=== PATIENT | male | born 1955 | race Caucasian/White ===

== ENCOUNTER → 2020-05-21 | Outpatient (CLI) | payer OTHER | END | disposition home or self-care (01) | LOC: RAH 10:04 | PROVIDERS: ATTEND Family Medicine | DX: E04.1 Nontoxic single thyroid nodule (principal) | CPT/HCPCS: 76536 ==

== ENCOUNTER → 2020-05-23 | Outpatient (CLI) | payer OTHER | END | disposition home or self-care (01) | LOC: RAH 10:16 | PROVIDERS: ATTEND Family Medicine | DX: R94.6 Abnormal results of thyroid function studies (principal) | CPT/HCPCS: 78014; A9516 ==

== ENCOUNTER → 2022-08-31 | Outpatient (CLI) | payer MEDICARE, OTHER | END | disposition home or self-care (01) | LOC: RAH 14:25 | PROVIDERS: ATTEND Family Medicine | DX: J44.9 Chronic obstructive pulmonary disease, unspecified (principal); K44.9 Diaphragmatic hernia without obstruction or gangrene; M47.815 Spondylosis without myelopathy or radiculopathy, thoracolumbar region; Z87.891 Personal history of nicotine dependence | CPT/HCPCS: 71250 ==

== ENCOUNTER → 2022-09-03 | Outpatient (CLI) | payer MEDICARE, OTHER | END | disposition home or self-care (01) | LOC: RAH 09:02 | PROVIDERS: ATTEND Family Medicine | DX: Z13.6 Encounter for screening for cardiovascular disorders (principal); Z87.891 Personal history of nicotine dependence | CPT/HCPCS: 76775 ==

== ENCOUNTER 2023-11-03 17:00 | Emergency (ER) | payer MEDICARE, OTHER ==
[~2023-11-03] VITALS: Ht 177.8 cm; Wt 70.3 kg
[2023-11-03 17:34] LABS: HEMATOCRIT 43.5 % (42-54); MEAN CORPUSCULAR HEMOGLOBIN 31.4 pg (27.0-33.0); MEAN CORPUSCULAR HGB CONC 36.6 g/dL (32.0-36.0); MEAN CORPUSCULAR VOLUME 85.8 fL (79-99); PLATELET COUNT (AUTO) 258 K/uL (130-400); RED BLOOD CELL COUNT(AUTO) 5.07 MIL/uL (4.50-6.20); RED CELL DISTRIBUTION WIDTH 12.2 % (11.0-15.5); WHITE BLOOD COUNT (AUTO) 9.7 K/uL (4.8-10.8)
[2023-11-03 17:39] LABS: CREATININE 0.8 mg/dL (0.5-1.3); POTASSIUM 3.8 mmol/L (3.5-5.1)
[2023-11-03] MEDS ORDERED: ONDANSETRON ODT 4MG TAB SL ONE (19:00)
[2023-11-03 19:13] LABS: APPEARANCE,URINE CLOUDY (CLEAR); BILIRUBIN,URINE NEGATIVE (NEGATIVE); COLOR,URINE LIGHT-YELLOW (YELLOW); GLUCOSE, URINE (UA) NEGATIVE (NEGATIVE); KETONES,URINE NEGATIVE (NEGATIVE); LEUKOCYTE ESTERASE ,URINE NEGATIVE Leu/uL (NEGATIVE); NITRATE,URINE NEGATIVE (NEGATIVE); OCCULT BLOOD,URINE NEGATIVE (NEGATIVE); PROTEIN,URINE NEGATIVE (NEGATIVE); UROBILINOGEN,URINE 0.2 mg/dL (0.2-1.0)
[2023-11-03 19:16] LABS: ADD UA MICROSCOPIC YES
[2023-11-03 19:17] LABS: BACTERIA,URINE RARE /HPF (None Seen); MUCUS,URINE RARE LPF (None Seen); SQUAMOUS EPITHELIAL CELL,UR RARE /HPF (0-2); UNCLASSIFIED CRYSTAL 3 /HPF (None Seen); YEAST,URINE BUDDING FEW /HPF (None Seen)
[2023-11-03 19:51] VITALS: BP 135/78; PULSE 68; RESP 18; O2SAT 98
[2023-11-03] MEDS: ONDANSETRON 4MG INJ IVP ONE (20:09)
[2023-11-03] MEDS ORDERED: MECL-302 PO (20:24)
[2023-11-03] MEDS: MECLIZINE HCL 25 MG TABLET PO SCH (21:13)
== END 2023-11-03 21:16 ==
LOC: EDH 17:00
DX: R42 Dizziness and giddiness (principal)
CPT/HCPCS: 99284; 83735; 84484; 80048; 85027; 81001; 36415; 70450; 93005; J2405

== ENCOUNTER 2024-07-22 17:42 | Emergency (ER) | payer MEDICARE ==
[~2024-07-22] VITALS: Ht 177.8 cm; Wt 69.9 kg
[~2024-07-22 17:42] MED LIST: MECL-302 PO
--- NOTE | 2024-07-22 17:57 | EKG ---
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 [place] : 1955 Requested By: ROBYN MÁRQUEZ Order Number: [id number] Reading MD: Hang Velazquez Measurements Intervals [place] Rate: 78 P: 82 AL: 161 QRS: 59 QRSD: 82 T: 72 QT: 371 QTc: 423 Interpretive Statements Sinus rhythm Consider left ventricular hypertrophy Anterior Q waves, possibly due to LVH Compared to ECG 11/03/2023 17:13:26 Left ventricular hypertrophy now present Q waves now present Electronically Signed On 07-23-2024 14:56:40 CDT by Hang Velazquez Please click the below link to view image of tracing.
--- NOTE | 2024-07-22 18:12 | ERN ---
General Chief Complaint: Cough Stated Complaint: PERSISTENT COUGH, BACK PAIN Time Seen by MD: 17:44 Source: patient History of Present Illness Initial Comments PATIENT IS A 68-YEAR-OLD MALE COMING IN TO BE EVALUATED FOR COUGH. PER PATIENT HE WAS SEEN AT ANOTHER FACILITY AND WAS PRESCRIBED STEROIDS AND MEDICATION FOR HIS COUGH BUT STATES THAT HIS COUGH IS STILL ONGOING. Allergies: Coded Allergies: No Known Drug Allergies (Unverified Allergy, Unknown, 11/03/23) Home Meds Active Scripts Meclizine HCl (Meclizine HCl) 25 Mg Tablet, 25 MG PO q8 hours PRN for dizziness, #15 TAB 0 Refills Prov:VENANCIO MACKAY [employer] 11/03/23 Past Medical History Past Medical History: Other Medical History Other: ADHD Past Surgical History: Other ROS Dictation CONSTITUTIONAL: NO CHILLS, NO FEVER, NO WEAKNESS, NO DIAPHORESIS, NO MALAISE. HEAD/FACE: NO SIGNS OF TRAUMA. EENT: NO EYE PAIN, NO BLURRED VISION, NO TEARING, NO DOUBLE VISION, NO EAR PAIN, NO EAR DISCHARGE, NO NOSE PAIN, NO NASAL CONGESTION, NO THROAT PAIN, NO THROAT SWELLING, NO MOUTH PAIN. RESPIRATORY: NO COUGH, NO ORTHOPNEA, NO SOB, NO STRIDOR, NO WHEEZING. CARDIOVASCULAR: NO CHEST PAIN, NO EDEMA, NO PALPITATIONS, NO SYNCOPE. GASTROINTESTINAL/ABDOMINAL: NO ABDOMINAL PAIN, NO CONSTIPATION, NO DIARRHEA, NO NAUSEA, NO VOMITING. GENITOURINARY: NO ABNORMAL DISCHARGE, NO DYSURIA, NO FREQUENT URINATION, NO H EMATURIA. NO COMPLAINTS OF PAIN IN THE GENITALS. MUSCULOSKELETAL: NO BACK PAIN, NO GOUT, NO JOINT PAIN, NO JOINT SWELLING, NO MUSCLE PAIN, NO MUSCLE STIFFNESS, NO NECK PAIN. INTEGUMENTARY: NO CHANGE IN COLOR, NO CHANGE IN HAIR/NAILS, NO DRYNESS, NO LES ION, NO LUMPS, NO RASH. NEUROLOGICAL/PSYCH: NO ANXIETY, NOT DEPRESSED, NO EMOTIONAL PROBLEM, NO HEADACHE, NO NUMBNESS, NO PRE-EXISTING DEFICIT, NO HISTORY OF SEIZURES, NO TREMORS, NO WEAKNESS. HEMATOLOGIC/LYMPHATIC: NOT ANEMIC, NO HISTORY OF BLOOD CLOTS, NO APPARENT BLEEDING, NO BRUISING, GLANDS NOT SWOLLEN. ALL SYSTEMS NEGATIVE, EXCEPT NOTED. Physical Exam Physical Exam Dictation VITAL SIGNS: REVIEWED. GENERAL APPEARANCE: ALERT, ORIENTED X3, NO ACUTE DISTRESS, OBESE. HEAD AND FACE: NON-TRAUMATIC. EYES: PERRL, PINK CONJUNCTIVAS, EYELID NO TRAUMA, ANTERIOR CHAMBER CLEAR. EARS: PINNAS INTACT AND NO SIGNS OF TRAUMA OR ERYTHEMA. EAR CANALS CLEAR AND NO DISCHARGE. TMS NO ERYTHEMA. NOSE: NO DISCHARGE, NO BLEEDING. OROPHARYNX: MOUTH NORMAL, TEETH NO CARIES, TONGUE PINK. PHARYNX CLEAR, NO ERYTHEMA. TONSILS NO EXUDATES, NO ABSCESSES NOTED. MUCOUS MEMBRANE MOIST. NECK: SUPPLE, NON-TENDER, NO THYROMEGALY, NO MASSES, NO JVD, NO BRUITS. BREAST: DEFERRED. CHEST: NO TENDERNESS, NO CREPITUS, NO PARADOXICAL MOVEMENT, NO RETRACTIONS. LUNGS: CLEAR, WELL-VENTILATED, SYMMETRIC, NO RALES, NO WHEEZING, NO RHONCHI, NO STRIDOR, GOOD BREATH SOUNDS BILATERALLY. HEART: REGULAR RATE, REGULAR RHYTHM, NO MURMUR, NO GALLOPS. VASCULAR: NO PERIPHERAL EDEMA. ABDOMEN: SOFT, POSITIVE BOWEL SOUNDS, NONDISTENDED, NO GUARDING, NONTENDER, NO REBOUND, NO MASSES NO HEPATOMEGALY, NO SPLENOMEGALY, NO SANDERSON'S SIGN, NO HERNIAS. RECTAL: DEFERRED. GENITAL: DEFERRED. NEUROLOGICAL: NORMAL SPEECH, GROSS MOTOR FUNCTION INTACT, GROSS SENSORY FUNCTION INTACT. MUSCULOSKELETAL: NECK NONTENDER, FULL RANGE OF MOTION, BACK NONTENDER, FULL RANGE OF MOTION. EXTREMITIES: NONTENDER, FULL RANGE OF MOTION. SKIN: COLOR PINK, DRY, NO TURGOR, NO RASH, NO LACERATIONS, NO ABRASIONS, NO CONTUSIONS. LYMPHATICS: DEFERRED. Results Laboratory and Microbiology Lab and Micro Result Laboratory Tests Test 07/22/24 19:41 07/22/24 20:30 07/22/24 21:40 White Blood Count 15.0 K/uL (4.8-10.8) H Red Blood Count 4.90 MIL/uL (4.50-6.20) Hemoglobin 15.0 g/dL (14.0-18.0) Hematocrit 42.0 % (42-54) Mean Corpuscular Volume 85.7 fL (79-99) Mean Corpuscular Hemoglobin 30.6 pg (27.0-33.0) Mean Corpuscular Hemoglobin Concent 35.7 g/dL (32.0-36.0) Red Cell Distribution Width 12.5 % (11.0-15.5) Platelet Count 342 K/uL (130-400) Mean Platelet Volume 8.4 fL (7.5-10.5) Immature Granulocyte % (Auto) 1.3 % (0-1) H Neutrophils (%) (Auto) 67.9 % (40.0-77.0) Lymphocytes (%) (Auto) 21.6 % (21.0-51.0) Monocytes (%) (Auto) 6.9 % (3.0-13.0) Eosinophils (%) (Auto) 1.9 % (0.0-8.0) Basophils (%) (Auto) 0.4 % (0.0-5.0) Neutrophils # (Auto) 10.2 K/uL (1.8-7.7) H Lymphocytes # (Auto) 3.2 K/uL (1.0-4.8) Monocytes # (Auto) 1.0 K/uL (0.1-1.0) Eosinophils # (Auto) 0.28 K/uL (0.00-0.70) Basophils # (Auto) 0.06 K/uL (0.00-0.20) Absolute Immature Granulocyte (auto 0.20 K/uL (0-1) Nucleated Red Blood Cells 0.0 % (0.0-0.19) Prothrombin Time 10.8 SEC (9.6-11.6) Prothromb Time International Ratio 1.02 (0.85-1.15) Sodium Level 139 mmol/L (136-145) Potassium Level 4.1 mmol/L (3.5-5.1) Chloride Level 102 mmol/L (101-111) Carbon Dioxide Level 30 mmol/L (21-32) Blood Urea Nitrogen 18 mg/dL (7-18) Creatinine 0.8 mg/dL (0.5-1.3) Glomerular Filtration Rate Calc 97 mL/min (>90) Random Glucose 101 mg/dL (70-105) Total Calcium 8.8 mg/dL (8.5-10.1) Total Creatine Kinase 104 U/L (21-232) Troponin I High Sensitivity 11.0 ng/L (4-75) B-Type Natriuretic Peptide 41 pg/mL (0-100) Procalcitonin < 0.05 ng/mL (0.05-0.5) L Influenza Type A Antigen Negative For Type A Influenza Type B Antigen Negative For Type B SARS-CoV-2 Antigen (Rapid) PRESUMPTIVE NEGATIVE Group A Streptococcus Rapid negative (NEGATIVE) Urine Color LIGHT-YELLOW (YELLOW) Urine Appearance CLEAR (CLEAR) Urine pH 7.0 (5.0-8.0) Urine Specific [place] 1.013 (1.001-1.031) Urine Protein NEGATIVE mg/dL (NEGATIVE) Urine Glucose (UA) NEGATIVE mg/dL (NEGATIVE) Urine Ketones NEGATIVE mg/dL (NEGATIVE) Urine Occult Blood NEGATIVE (NEGATIVE) Urine Nitrate NEGATIVE (NEGATIVE) Urine Bilirubin NEGATIVE mg/dL (NEGATIVE) Urine Urobilinogen 0.2 mg/dL (0.2-1.0) Urine Leukocyte Esterase NEGATIVE Pretty/uL Urine Opiates Screen NEGATIVE (NEGATIVE) Urine Barbiturates Screen NEGATIVE (NEGATIVE) Urine Phencyclidine Screen NEGATIVE (NEGATIVE) Urine Amphetamines Screen NEGATIVE (NEGATIVE) Urine Benzodiazepines Screen NEGATIVE (NEGATIVE) Urine Cocaine Screen NEGATIVE (NEGATIVE) Urine Marijuana (THC) Screen NEGATIVE (NEGATIVE) Labs Reviewed?: Yes MDM MDM: DIFFERENTIAL DIAGNOSIS: PERSISTENT COUGH, URI, SHORTNESS OF BREATH PATIENT IS A 68-YEAR-OLD GENTLEMAN COMING IN TO BE EVALUATED FOR PERSISTENT COUGH. ON PHYSICAL EXAM NO ACUTE FINDINGS. LABORATORY WORKUP PENDING TO RULE OUT ACUTE PATHOLOGY. Patient's lab studies were all negative except for a white count of 15. Procalcitonin was negative. Patient has a viral upper respiratory tract infection. He is being overwhelmed by the symptoms. I will discharge him with some Tessalon Perles as well as some muscle relaxant for his back. ED Course Orders Procedure Category Date Status Time Cbc With Differential LAB 07/22/24 Complete 17:49 Prothrombin Time With LAB 07/22/24 Complete INR 17:49 B-Type Natriuretic LAB 07/22/24 Complete Peptide 17:49 Chest 1vw RAD 07/22/24 Resulted 17:49 12 Lead Ekg Tracing- EKG 07/22/24 Complete Technical 17:49 Urinalysis Profile LAB 07/22/24 Complete 17:49 Basic Metabolic Panel LAB 07/22/24 Complete 17:49 Drug Screen Urine LAB 07/22/24 Complete 17:58 Acetaminophen 500mg PHA 07/22/24 Complete Tab (Tylenol 500mg T 18:00 Cardiac Panel LAB 07/22/24 Complete 17:49 Rapid (Group A Strep) LAB 07/22/24 Complete 19:22 Covid19 (Sars Antigen LAB 07/22/24 Complete Rapid) 19:22 Influenza Type A & B, LAB 07/22/24 Complete Rapid 19:22 Procalcitonin LAB 07/22/24 Complete 22:29 Cyclobenzaprine Hcl PHA 07/22/24 Complete (Cyclobenzaprine Hcl 23:00 Benzonatate 100 Mg PHA 07/22/24 Complete Capsule (Tessalon 100 23:00 Current Medications Medications (Trade) Dose Ordered Sig/[place] Route PRN Reason Start Time Stop Time Status Last Admin Dose Admin Acetaminophen (TYLenol 500MG TAB) 500 mg ONCE ONCE PO 07/22/24 18:00 07/22/24 18:02 DC 07/22/24 19:21 Benzonatate (Tessalon 100mg Caps) 100 mg ONCE ONCE PO 07/22/24 23:00 07/22/24 23:01 DC 07/22/24 22:53 Cyclobenzaprine HCl (Cyclobenzaprine HCl) 10 mg ONCE ONCE PO 07/22/24 23:00 07/22/24 23:01 DC 07/22/24 22:53 Vital Signs Date Time Temp Pulse Resp B/P (MAP) Pulse Ox O2 Delivery O2 Flow Rate FiO2 07/22/24 23:42 98.1 59 15 120/75 100 Room Air* 0 21 07/22/24 20:25 98.1 20 20 137/68 97 Room Air* 0 21 07/22/24 17:43 98.1 86 20 137/68 97 Room Air 0 DX & DISP Disposition: Discharge Departure Impression: Primary Impression: Cough Additional Impression: URI (upper respiratory infection) Condition: Stable Scripts Cyclobenzaprine HCl (Cyclobenzaprine HCl) 7.5 Mg Tablet 1 TAB PO TID for spasm for 10 Days, #20 TAB 0 Refills Prov: JELENA LAY MD 07/22/24 Benzonatate (Benzonatate) 150 Mg Capsule 1 CAP PO TID for 10 Days, #30 CAP 0 Refills Prov: JELENA LAY MD 07/22/24 Referrals: JEFFREY DUARTE (PCP) ROBYN MÁRQUEZ MD Jul 22, 2024 18:12 JELENA LAY MD Jul 22, 2024 23:56
[2024-07-22] MEDS: acetaMINOPHEN 500 MG TABLET PO ONE (19:21)
--- NOTE | 2024-07-22 19:25 | HMCIMG ---
PORTABLE CHEST RADIOGRAPH INDICATION: COUGH COMPARISON: None FINDINGS: Heart size is normal. The pulmonary vascularity and racheal appear normal. No abnormal pulmonary parenchymal opacity or consolidation identified. No significant pleural effusion noted. No pneumothorax detected. IMPRESSION: No radiographic evidence for any acute cardiopulmonary process.
[2024-07-22 19:47] LABS: BASOPHILS # (AUTO) 0.06 K/uL (0.00-0.20); BASOPHILS % (AUTO) 0.4 % (0.0-5.0); EOSINOPHILS # (AUTO) 0.28 K/uL (0.00-0.70); EOSINOPHILS % (AUTO) 1.9 % (0.0-8.0); LYMPHOCYTES # (AUTO) 3.2 K/uL (1.0-4.8); LYMPHOCYTES % (AUTO) 21.6 % (21.0-51.0); MEAN CORPUSCULAR HEMOGLOBIN 30.6 pg (27.0-33.0); MEAN CORPUSCULAR HGB CONC 35.7 g/dL (32.0-36.0); MEAN CORPUSCULAR VOLUME 85.7 fL (79-99); MONOCYTES % (AUTO) 6.9 % (3.0-13.0); NEUTROPHILS # (AUTO) 10.2 K/uL (1.8-7.7); NEUTROPHILS % (AUTO) 67.9 % (40.0-77.0); PLATELET COUNT (AUTO) 342 K/uL (130-400); RED CELL DISTRIBUTION WIDTH 12.5 % (11.0-15.5)
[2024-07-22 20:02] LABS: CREATININE 0.8 mg/dL (0.5-1.3); POTASSIUM 4.1 mmol/L (3.5-5.1)
[2024-07-22 20:04] LABS: INR 1.02 (0.85-1.15); PROTHROMBIN TIME 10.8 SEC (9.6-11.6)
[2024-07-22 20:22] LABS: B-TYPE NATRIURETIC PEPTIDE 41 pg/mL (0-100)
[2024-07-22 20:49] LABS: RAPID GROUP A STREP negative (NEGATIVE)
[2024-07-22 20:59] LABS: COVID19 (SARS ANTIGEN RAPID) PRESUMPTIVE NEGATIVE (NEGATIVE); INFLUENZA TYPE A Negative For Type A (NEGATIVE); INFLUENZA TYPE B Negative For Type B (NEGATIVE)
[2024-07-22 21:47] LABS: BILIRUBIN,URINE NEGATIVE (NEGATIVE); COLOR,URINE LIGHT-YELLOW (YELLOW); GLUCOSE, URINE (UA) NEGATIVE (NEGATIVE); KETONES,URINE NEGATIVE (NEGATIVE); LEUKOCYTE ESTERASE ,URINE NEGATIVE Leu/uL (NEGATIVE); NITRATE,URINE NEGATIVE (NEGATIVE); OCCULT BLOOD,URINE NEGATIVE (NEGATIVE); PROTEIN,URINE NEGATIVE (NEGATIVE); UROBILINOGEN,URINE 0.2 mg/dL (0.2-1.0)
[2024-07-22 21:48] LABS: ADD UA MICROSCOPIC NO; APPEARANCE,URINE CLEAR (CLEAR)
[2024-07-22 21:54] LABS: AMPHET/METH SCREEN,URINE NEGATIVE (NEGATIVE); BARBITURATE SCREEN, URINE NEGATIVE (NEGATIVE); BENZODIAZEPINES SCREEN,URINE NEGATIVE (NEGATIVE); CANNABINOID SCREEN,URINE NEGATIVE (NEGATIVE); COCAINE SCREEN,URINE NEGATIVE (NEGATIVE); OPIATE SCREEN,URINE NEGATIVE (NEGATIVE); PHENCYCLIDINE SCREEN,URINE NEGATIVE (NEGATIVE)
[2024-07-22] MEDS: BENZONATATE 100 MG CAPSULE PO ONE (22:53)
[2024-07-22] MEDS: CYCLOBENZAPRINE HCL 10 MG TABLET PO ONE (22:53)
[2024-07-22 23:42] VITALS: BP 120/75; PULSE 59; RESP 15; TEMP 98; O2SAT 100
[2024-07-22] MEDS ORDERED: BENZ150C8 PO (23:56)
[2024-07-22] MEDS ORDERED: CYCL7.5T27 PO (23:56)
[2024-07-24] MEDS ORDERED: BENZ-39 PO (20:56)
== END 2024-07-23 00:02 | disposition home or self-care (01) ==
LOC: EDH 17:42
DX: J06.9 Acute upper respiratory infection, unspecified (principal); R05.9 Cough, unspecified; Z20.822 Contact with and (suspected) exposure to COVID-19
CPT/HCPCS: 36415; 71045; 80048; 80305; 81003; 82550; 83880; 84145; 84484; 85025; 85610; 87426; 87804; 87880; 93005; 99285